=== PATIENT | female | born 1995 | race American Indian/Alaskan Native ===

== ENCOUNTER 2020-04-21 20:08 | Emergency (ER) | payer SELFPAY ==
[2020-04-21 20:16] VITALS: BP 147/92
--- NOTE | 2020-04-21 21:43 | Emergency Department Report ---
Chief Complaint: Dizziness Stated Complaint: DIZZINESS/HEADACHE Time Seen by Provider: 04/21/20 21:24 - HPI History of Present Illness: This is a 24-year-old female presents to the ED complaining of slight headache for the past 2 days. Patient states she was diagnosed with gestational hypertension and is currently not taking any medication. Patient states that she works a lot and felt dizzy a bit at work today because she was working in the heat she was nowhere else patient is a lot of heavy stuff. She denies fever/chills/chest pain/shortness of breath/dizziness - ROS Review of Systems: As noted in HPI - Exam Vital Signs: Vital Signs 04/21/20 20:14 Temperature 98.3 F Pulse Rate 93 H Respiratory 20 Rate Blood Pressure 147/92 O2 Sat by Pulse 97 Oximetry Physical Exam: GENERAL: Alert and oriented x3, no apparent distress, Normal Gait, atraumatic. HEAD: Head is normocephalic and a-traumatic. EYES: Extra ocular muscles are intact. Pupils are equal, round, and reactive to light and accommodation. NECK: Supple. Non edematous, No carotid bruits. No lymphadenopathy or thyromegaly. No C-spine tenderness LUNGS: Symetrical with respiration, No wheezing, no rales or crackles, CTAB. HEART: S1, S2 present, regular rate and rhythm without murmur, no rubs, no gallops. Non tender to palpation SKIN: Warm and dry, No lesions, No ulceration or induration present. MSE screening note: Focused history and physical exam performed. Due to findings the following was ordered: ED Medical Decision Making - Medical Decision Making This 24-year-old female who presents with history of high blood pressure. Blood pressure mildly elevated in the ED. Discussed with patient we will give referrals for primary care physician and to follow-up as soon as possible. Low dose blood pressure meds were given. Vital signs are normal stable patient is in no acute distress ED Disposition for MSE Clinical Impression: Uncontrolled hypertension Disposition: Z-07 MED SCREENING EXAM-LEFT Is pt being admited?: No Does the pt Need Aspirin: No Condition: Stable Instructions: Hypertension (ED) Additional Instructions: Make sure to follow up with the primary care physician as discussed. Take all your medications as you've been prescribed. If you have any worsening symptoms or develop new symptoms please return to ED immediately. Prescriptions: amLODIPine 10 mg PO DAILY #30 tab Referrals: [facility] [Provider Group] - 3-[address] [facility] [Outside] - 3-5 Days [facility] [Outside] - 3-5 Days [facility] [Outside] - 3-5 Days Forms: Work/School Release Form(ED) Time of Disposition: 21:44
== END 2020-04-21 21:44 | disposition left against medical advice (07) ==
LOC: ED 20:08
DX: I10 Essential (primary) hypertension (principal); Z53.21 Procedure and treatment not carried out due to patient leaving prior to being seen by health care provider

== ENCOUNTER 2020-06-11 19:21 | Emergency (ER) | payer SELFPAY ==
[2020-06-11 20:48] LABS: Bilirubin,Urine NEG (Negative); Blood,Urine NEG (Negative); Color,Urine Yellow (Yellow); Protein,Urine <15 mg/dL mg/dL (Negative)
[2020-06-11 20:50] LABS: Basophils # (Auto) 0.1 K/mm3 (0.0-0.1); Basophils % (Auto) 1.3 % (0.0-1.8); Eosinophils # (Auto) 0.2 K/mm3 (0.0-0.4); Eosinophils % (Auto) 2.6 % (0.0-4.3); Hematocrit 31.9 % (30.3-42.9); Hemoglobin 10.6 gm/dl (10.1-14.3); Lymphocytes # (Auto) 1.8 K/mm3 (1.2-5.4); Lymphocytes % (Auto) 28.1 % (13.4-35.0); Mean Corpuscular HGB Conc 33 % (30-34); Mean Corpuscular Volume 74 fl (79-97); Monocytes # (Auto) 0.4 K/mm3 (0.0-0.8); Monocytes % (Auto) 6.8 % (0.0-7.3); Platelet Count 458 K/mm3 (140-440); Red Blood Count 4.32 M/mm3 (3.65-5.03); Red Cell Distribution Width 17.8 % (13.2-15.2)
[2020-06-11 21:08] LABS: Albumin 3.9 g/dL (3.9-5); BUN/Creatinine Ratio 15; Blood Urea Nitrogen 12 mg/dL (7-17); Calcium 9.8 mg/dL (8.4-10.2); Hemolysis Index 4
[2020-06-11 21:10] LABS: Alanine Aminotransferase < 5 units/L (7-56)
--- NOTE | 2020-06-12 04:37 | Ultrasound Report ---
ULTRASOUND ABDOMEN, LIMITED (RIGHT UPPER QUADRANT) INDICATION: ruq pain. COMPARISON: None available. FINDINGS: Pancreas: Visualized portion shows no significant abnormality. Liver: Normal. Gallbladder: No gallstones identified. Possible mild sludge. Bile ducts: Normal. Common Bile Duct measures 2 mm. Free fluid: None. Additional Findings: None. IMPRESSION: Possible mild sludge. Signer Name: Héctor Jesus MD Signed: 06/12/2020 4:33 AM Workstation Name: [id number]
--- NOTE | 2020-06-12 04:59 | Emergency Department Report ---
ED Abdominal Pain HPI - General Chief Complaint: Abdominal Pain Stated Complaint: RIGHT SIDE STOMACH PAIN Time Seen by Provider: 06/11/20 21:28 Source: patient Mode of arrival: Ambulatory Limitations: No Limitations - History of Present Illness Initial Comments: 25-year-old obese -[place] female presents emerged department complaining of a one-week history of episodic abdominal pain associated with diarrhea and pain to the right upper quadrant. She was no vomiting, no hematuria no hematemesis no hematochezia. Ports no fever, chills, sweats. Symptoms worsen with food. MD Complaint: abdominal pain -: Gradual Location: RUQ Radiation: RUQ Migration to: RUQ Severity: mild Consistency: constant Improves With: nothing Worsens With: nothing Associated Symptoms: nausea. denies: constipation, dysuria, hematemesis, hematuria, anorexia, syncope - Related Data Previous Rx's Medication Instructions Recorded Last Taken Type amLODIPine 10 mg PO DAILY #30 tab 04/21/20 Unknown Rx Hyoscyamine Subl [Levsin Sl 0.125 0.125 mg SL Q6HR PRN #14 tab 06/12/20 Unknown Rx TAB] Ondansetron [Zofran ODT TAB] 8 mg PO Q12HR #14 tab.rapdis 06/12/20 Unknown Rx Allergies Allergy/AdvReac Type Severity Reaction Status Date / Time No Known Allergies Allergy Unverified 04/21/20 21:24 ED Review of Systems ROS: Stated complaint: RIGHT SIDE STOMACH PAIN Other details as noted in HPI Comment: All other systems reviewed and negative ED Past Medical Hx - Past Medical History Hx Hypertension: Yes (gestational) - Surgical History Past Surgical History?: Yes Additional Surgical History: eye - Social History Smoking Status: Former Smoker Substance Use Type: Marijuana - Medications Home Medications: Home Medications Medication Instructions Recorded Confirmed Last Taken Type amLODIPine 10 mg PO DAILY #30 tab 04/21/20 Unknown Rx Hyoscyamine Subl [Levsin Sl 0.125 0.125 mg SL Q6HR PRN #14 tab 06/12/20 Unknown Rx TAB] Ondansetron [Zofran ODT TAB] 8 mg PO Q12HR #14 tab.rapdis 06/12/20 Unknown Rx ED Physical Exam - General Limitations: No Limitations General appearance: alert, in no apparent distress - Head Head exam: Present: atraumatic, normocephalic - Eye Eye exam: Present: normal appearance, PERRL, EOMI - ENT ENT exam: Present: normal exam, normal orophraynx, mucous membranes moist, TM's normal bilaterally - Neck Neck exam: Present: normal inspection - Respiratory Respiratory exam: Present: normal lung sounds bilaterally. Absent: respiratory distress, wheezes, rales - Cardiovascular Cardiovascular Exam: Present: regular rate, normal rhythm. Absent: bradycardia, systolic murmur, diastolic murmur, rubs, gallop - GI/Abdominal GI/Abdominal exam: Present: soft, normal bowel sounds. Absent: guarding, rebound, organomegaly, mass, bruit, pulsatile mass - Extremities Exam Extremities exam: Present: normal inspection - Back Exam Back exam: Present: normal inspection - Neurological Exam Neurological exam: Present: alert, oriented X3 - Psychiatric Psychiatric exam: Present: normal affect, normal mood - Skin Skin exam: Present: warm, dry, intact, normal color. Absent: rash ED Course Vital Signs 06/11/20 19:48 Temperature 98.2 F Pulse Rate 95 H Respiratory 20 Rate Blood Pressure 166/110 O2 Sat by Pulse 99 Oximetry ED Medical Decision Making - Lab Data Result diagrams: 06/11/20 20:16 06/11/20 20:16 Lab Results 06/11/20 06/11/20 06/11/20 Range/Units 20:16 20:16 20:16 WBC 6.4 (4.5-11.0) K/mm3 RBC 4.32 (3.65-5.03) M/mm3 Hgb 10.6 (10.1-14.3) gm/dl Hct 31.9 (30.3-42.9) % MCV 74 L (79-97) fl MCH 25 L (28-32) pg MCHC 33 (30-34) % RDW 17.8 H (13.2-15.2) % Plt Count 458 H (140-440) K/mm3 Lymph % (Auto) 28.1 (13.4-35.0) % Lajas % (Auto) 6.8 (0.0-7.3) % Eos % (Auto) 2.6 (0.0-4.3) % Baso % (Auto) 1.3 (0.0-1.8) % Lymph # 1.8 (1.2-5.4) K/mm3 Lajas # 0.4 (0.0-0.8) K/mm3 Eos # 0.2 (0.0-0.4) K/mm3 Baso # 0.1 (0.0-0.1) K/mm3 Seg Neutrophils % 61.2 (40.0-70.0) % Seg Neutrophils # 3.9 (1.8-7.7) K/mm3 Sodium 138 (137-145) mmol/L Potassium 3.6 (3.6-5.0) mmol/L Chloride 102.1 (98-107) mmol/L Carbon Dioxide 22 (22-30) mmol/L Anion Gap 18 mmol/L BUN 12 (7-17) mg/dL Creatinine 0.8 (0.6-1.2) mg/dL Estimated GFR > 60 ml/min BUN/Creatinine Ratio 15 % Glucose 96 (65-100) mg/dL Calcium 9.8 (8.4-10.2) mg/dL Total Bilirubin 0.20 (0.1-1.2) mg/dL AST 17 (5-40) units/L ALT < 5 L (7-56) units/L Alkaline Phosphatase 89 (35-129) units/L Total Protein 7.9 (6.3-8.2) g/dL Albumin 3.9 (3.9-5) g/dL Albumin/Globulin Ratio 1.0 % Lipase (13-60) units/L HCG, Qual Negative (Negative) Urine Color (Yellow) Urine Turbidity (Clear) Urine pH (5.0-7.0) Ur Specific Powell (1.003-1.030) Urine Protein (Negative) mg/dL Urine Glucose (UA) (Negative) mg/dL Urine Ketones (Negative) mg/dL Urine Blood (Negative) Urine Nitrite (Negative) Urine Bilirubin (Negative) Urine Urobilinogen (<2.0) mg/dL Ur Leukocyte Esterase (Negative) Urine WBC (Auto) (0.0-6.0) /HPF Urine RBC (Auto) (0.0-6.0) /HPF U Epithel Cells (Auto) (0-13.0) /HPF 06/11/20 06/11/20 Range/Units 20:16 Unknown WBC (4.5-11.0) K/mm3 RBC (3.65-5.03) M/mm3 Hgb (10.1-14.3) gm/dl Hct (30.3-42.9) % MCV (79-97) fl MCH (28-32) pg MCHC (30-34) % RDW (13.2-15.2) % Plt Count (140-440) K/mm3 Lymph % (Auto) (13.4-35.0) % Lajas % (Auto) (0.0-7.3) % Eos % (Auto) (0.0-4.3) % Baso % (Auto) (0.0-1.8) % Lymph # (1.2-5.4) K/mm3 Lajas # (0.0-0.8) K/mm3 Eos # (0.0-0.4) K/mm3 Baso # (0.0-0.1) K/mm3 Seg Neutrophils % (40.0-70.0) % Seg Neutrophils # (1.8-7.7) K/mm3 Sodium (137-145) mmol/L Potassium (3.6-5.0) mmol/L Chloride (98-107) mmol/L Carbon Dioxide (22-30) mmol/L Anion Gap mmol/L BUN (7-17) mg/dL Creatinine (0.6-1.2) mg/dL Estimated GFR ml/min BUN/Creatinine Ratio % Glucose (65-100) mg/dL Calcium (8.4-10.2) mg/dL Total Bilirubin (0.1-1.2) mg/dL AST (5-40) units/L ALT (7-56) units/L Alkaline Phosphatase (35-129) units/L Total Protein (6.3-8.2) g/dL Albumin (3.9-5) g/dL Albumin/Globulin Ratio % Lipase 36 (13-60) units/L HCG, Qual (Negative) Urine Color Yellow (Yellow) Urine Turbidity Clear (Clear) Urine pH 6.0 (5.0-7.0) Ur Specific Powell 1.013 (1.003-1.030) Urine Protein <15 mg/dl (Negative) mg/dL Urine Glucose (UA) Neg (Negative) mg/dL Urine Ketones Neg (Negative) mg/dL Urine Blood Neg (Negative) Urine Nitrite Neg (Negative) Urine Bilirubin Neg (Negative) Urine Urobilinogen 2.0 (<2.0) mg/dL Ur Leukocyte Esterase Neg (Negative) Urine WBC (Auto) 4.0 (0.0-6.0) /HPF Urine RBC (Auto) 2.0 (0.0-6.0) /HPF U Epithel Cells (Auto) 6.0 (0-13.0) /HPF - Radiology Data Radiology results: report reviewed Referring Physician:ARELI TRINHPatient Name:DIANA HERNANDEZYPatient ID:[id number] of :[id number]:FemaleAccession:[id number] Date:[id number] Status:Finalized Findings [facility] [address] [place] [address] Ultrasound Report Signed Patient: DIANA HACKETT MR#: [id number] : 1995 Acct:[id number] Age/Sex: 24 / F ADM Date: 06/11/20 Loc: ED Attending Dr: Ordering Physician: EARL MATHIS Date of Service: 06/11/20 Procedure(s): US abdomen limited Accession Number(s): [id number] cc: EARL MATHIS ULTRASOUND ABDOMEN, LIMITED (RIGHT UPPER QUADRANT) INDICATION: ruq pain. COMPARISON: None available. FINDINGS: Pancreas: Visualized portion shows no significant abnormality. Liver: Normal. Gallbladder: No gallstones identified. Possible mild sludge. Bile ducts: Normal. Common Bile Duct measures 2 mm. Free fluid: None. Additional Findings: None. IMPRESSION: Possible mild sludge. Signer Name: Héctor Jesus MD Signed: 06/12/2020 4:33 AM Workstation Name: [id number] Transcribed By: ES Dictated By: Héctor Jesus MD Electronically Authenticated By: Héctor Jesus MD Signed Date/Time: 06/12/20432 DD/ 1 TD/TT: - Medical Decision Making this patient presents with abdominal pain of unclear etiology. Their evaluation has not identified a emergent etiology for the abdominal pain. Specifically, given the very benign exam, normal laboratory studies, and lack of significant risk factors, I have a very low suspicion for appendicitis, ischemic bowel, bowel perforation, or any other life threatening disease. I have discussed with the patient the level of uncertainty with undifferentiated abdominal pain and clearly explained the need to follow-up as noted on the discharge instructions, or return to the Emergency Department immediately if the pain worsens, develops fever, persistent and uncontrollable vomiting, or for any new symptoms or concerns. I discussed with the patient that this presentation today for abdominal pain could represent a significant risk for an acute abdominal process. Although the tests in the ED were essentially normal, there is still a possibility of a process such as appendicitis, diverticulitis, cholecystitis, ulcer, early bowel obstruction, mesenteric ischemia, kidney stone, or even kidney infection which could subsequently cause disability or . The patient understands that they must return within 24 hours for a recheck or see their physician within 24 hours for re-exam due to the possibility of significant surgical or medical process. Critical care attestation.: If time is entered above; I have spent that time in minutes in the direct care of this critically ill patient, excluding procedure time. ED Disposition Clinical Impression: Abdominal pain, Vomiting, Biliary pain Disposition: DC- TO HOME OR SELFCARE Is pt being admited?: No Does the pt Need Aspirin: No Condition: Stable Instructions: Abdominal Pain (ED) Additional Instructions: To be sure to follow-up with the gastrointestinal doctor to further evaluate your acalculus biliary pain Prescriptions: Hyoscyamine Subl [Levsin Sl 0.125 TAB] 0.125 mg SL Q6HR PRN #14 tab PRN Reason: ABDOMINAL PAIN Ondansetron [Zofran ODT TAB] 8 mg PO Q12HR #14 tab.lizzie Referrals: JOSIAS BEATTY MD [Staff Physician] - 3-5 Days [facility] [Provider Group] - 3-5 Days
[2020-06-12 06:50] VITALS: BP 170/103
== END 2020-06-12 05:40 | disposition home or self-care (01) ==
LOC: ED 19:21
DX: K80.42 Calculus of bile duct with acute cholecystitis without obstruction (principal); R11.10 Vomiting, unspecified; I10 Essential (primary) hypertension; F12.10 Cannabis abuse, uncomplicated; Z87.891 Personal history of nicotine dependence; Z79.899 Other long term (current) drug therapy
CPT/HCPCS: 36415; 76705; 80053; 81001; 83690; 84703; 85025

== ENCOUNTER 2021-01-11 17:39 | Emergency (ER) | payer SELFPAY ==
[2021-01-11 19:32] VITALS: BP 157/108
--- NOTE | 2021-01-11 20:26 | Emergency Department Report ---
- General Chief complaint: Eye Problems Stated complaint: SOMETHING BIT LT EYE LID Time Seen by Provider: 01/11/21 20:17 Source: patient Mode of arrival: Ambulatory Limitations: No Limitations - History of Present Illness Initial comments: Patient is a 25-year-old female who presents emergency room complaints of a possible bite to her left upper eyelid near her eyebrow that occurred 3 days ago. She did not see or feel anything bite her. She states that it is causing swelling of her eyelid. She denies any rash. She denies any involvement of the eye or any vision problems. She denies any drainage, fever, nausea, vomiting, diarrhea, other facial swelling, difficulty swallowing, difficulty breathing. She has a past medical history of hypertension. She states that she is out of her blood pressure medication. She states she takes amlodipine 5 mg daily. She does not have a primary care doctor yet. Last menstrual cycle 01/02/21. - Related Data Previous Rx's Medication Instructions Recorded Last Taken Type amLODIPine 10 mg PO DAILY #30 tab 04/21/20 Unknown Rx Hyoscyamine Subl [Levsin Sl 0.125 0.125 mg SL Q6HR PRN #14 tab 06/12/20 Unknown Rx TAB] Ondansetron [Zofran ODT TAB] 8 mg PO Q12HR #14 tab.rapdis 06/12/20 Unknown Rx Cetirizine HCl [Zyrtec 10mg tab] 10 mg PO DAILY #10 tablet 01/11/21 Unknown Rx Famotidine [Pepcid] 40 mg PO QHS #10 tablet 01/11/21 Unknown Rx Hydrocortisone 1% [Hydrocortisone 1 applicatio TP TID 7 Days #1 tube 01/11/21 Unknown Rx 1% CREAM] amLODIPine 5 mg PO DAILY #30 tab 01/11/21 Unknown Rx diphenhydrAMINE [Benadryl CAP] 25 mg PO Q8HR PRN #14 capsule 01/11/21 Unknown Rx Allergies Allergy/AdvReac Type Severity Reaction Status Date / Time No Known Allergies Allergy Unverified 04/21/20 21:24 Abscess Boil HPI - HPI Chief Complaint: Eye Problems Stated Complaint: SOMETHING BIT LT EYE LID Time Seen by Provider: 01/11/21 20:17 Home Medications: Previous Rx's Medication Instructions Recorded Last Taken Type amLODIPine 10 mg PO DAILY #30 tab 04/21/20 Unknown Rx Hyoscyamine Subl [Levsin Sl 0.125 0.125 mg SL Q6HR PRN #14 tab 06/12/20 Unknown Rx TAB] Ondansetron [Zofran ODT TAB] 8 mg PO Q12HR #14 tab.rapdis 06/12/20 Unknown Rx Cetirizine HCl [Zyrtec 10mg tab] 10 mg PO DAILY #10 tablet 01/11/21 Unknown Rx Famotidine [Pepcid] 40 mg PO QHS #10 tablet 01/11/21 Unknown Rx Hydrocortisone 1% [Hydrocortisone 1 applicatio TP TID 7 Days #1 tube 01/11/21 Unknown Rx 1% CREAM] amLODIPine 5 mg PO DAILY #30 tab 01/11/21 Unknown Rx diphenhydrAMINE [Benadryl CAP] 25 mg PO Q8HR PRN #14 capsule 01/11/21 Unknown Rx Allergies/Adverse Reactions: Allergies Allergy/AdvReac Type Severity Reaction Status Date / Time No Known Allergies Allergy Unverified 04/21/20 21:24 ED Review of Systems ROS: Stated complaint: SOMETHING BIT LT EYE LID Other details as noted in HPI Comment: All other systems reviewed and negative ED Past Medical Hx - Past Medical History Previous Medical History?: Yes Hx Hypertension: Yes (gestational) - Surgical History Past Surgical History?: Yes Additional Surgical History: eye - Social History Smoking Status: Former Smoker Substance Use Type: Marijuana - Medications Home Medications: Home Medications Medication Instructions Recorded Confirmed Last Taken Type amLODIPine 10 mg PO DAILY #30 tab 04/21/20 Unknown Rx Hyoscyamine Subl [Levsin Sl 0.125 0.125 mg SL Q6HR PRN #14 tab 06/12/20 Unknown Rx TAB] Ondansetron [Zofran ODT TAB] 8 mg PO Q12HR #14 tab.rapdis 06/12/20 Unknown Rx Cetirizine HCl [Zyrtec 10mg tab] 10 mg PO DAILY #10 tablet 01/11/21 Unknown Rx Famotidine [Pepcid] 40 mg PO QHS #10 tablet 01/11/21 Unknown Rx Hydrocortisone 1% [Hydrocortisone 1 applicatio TP TID 7 Days #1 tube 01/11/21 Unknown Rx 1% CREAM] amLODIPine 5 mg PO DAILY #30 tab 01/11/21 Unknown Rx diphenhydrAMINE [Benadryl CAP] 25 mg PO Q8HR PRN #14 capsule 01/11/21 Unknown Rx ED Physical Exam - General Limitations: No Limitations General appearance: alert, in no apparent distress - Head Head exam: Present: atraumatic, normocephalic - Eye Eye exam: Present: PERRL, EOMI, other (0.5 cm erythematous papule present to the left upper eyelid just inferior to the eyebrow, mild edema of the upper eyelid, no rashes, no facial edema, no drainage, no fluctuance, no necrosis, no increased warmth, no pain with EOMI) Pupils: Present: normal accommodation - ENT ENT exam: Present: mucous membranes moist - Respiratory Respiratory exam: Absent: respiratory distress, accessory muscle use - Neurological Exam Neurological exam: Present: alert, oriented X3 - Psychiatric Psychiatric exam: Present: normal affect, normal mood - Skin Skin exam: Present: warm, dry ED Course Vital Signs 01/11/21 19:30 Temperature 98.9 F Pulse Rate 99 H Respiratory 17 Rate Blood Pressure 157/108 O2 Sat by Pulse 100 Oximetry ED Medical Decision Making - Medical Decision Making Patient is a 25-year-old female who presents emergency room complaints of a possible bite to her left upper eyelid near her eyebrow that occurred 3 days ago. She did not see or feel anything bite her. She states that it is causing swelling of her eyelid. She denies any rash. She denies any involvement of the eye or any vision problems. She denies any drainage, fever, nausea, vomiting, diarrhea, other facial swelling, difficulty swallowing, difficulty breathing. She has a past medical history of hypertension. She states that she is out of her blood pressure medication. She states she takes amlodipine 5 mg daily. She does not have a primary care doctor yet. Last menstrual cycle 01/02/21. Vitals with mildly elevated blood pressure, secondary to patient being out of her medication, will refill her home medication and give her primary care follow-up. On exam: 0.5 cm erythematous papule present to the left upper eyelid just inferior to the eyebrow, mild edema of the upper eyelid, no rashes, no facial edema, no drainage, no fluctuance, no necrosis, no increased warmth, no pain with EOMI. examination appears most consistent with insect bite with mild localized reaction. No signs of cellulitis, abscess, preseptal or orbital cellulitis. No signs of significant allergic reaction. Advised patient Please use medication as prescribed. do not get ointment in the eye, only place over insect bite. Do not drive or operate machinery when taking Benadryl due to potential for drowsiness. Follow-up with your primary care doctor. Return to emergency room for new or worsening symptoms. Critical care attestation.: If time is entered above; I have spent that time in minutes in the direct care of this critically ill patient, excluding procedure time. ED Disposition Clinical Impression: Elevated blood pressure reading, Non compliance with medical treatment Insect bite Qualifiers: Encounter type: initial encounter Site of insect bite: head Site of insect bite of head: eyelid Laterality: left Qualified Code(s): S00.262A - Insect bite (nonvenomous) of left eyelid and periocular area, initial encounter Disposition: TO HOME OR SELFCARE Is pt being admited?: No Does the pt Need Aspirin: No Condition: Stable Instructions: Preventing Hypertension, Insect Bite, Adult, [id number] Additional Instructions: Please use medication as prescribed. do not get ointment in the eye, only place over insect bite. Do not drive or operate machinery when taking Benadryl due to potential for drowsiness. Follow-up with your primary care doctor. Return to emergency room for new or worsening symptoms. Prescriptions: Famotidine [Pepcid] 40 mg PO QHS #10 tablet amLODIPine 5 mg PO DAILY #30 tab diphenhydrAMINE [Benadryl CAP] 25 mg PO Q8HR PRN #14 capsule PRN Reason: itching/swelling Hydrocortisone 1% [Hydrocortisone 1% CREAM] 1 applicatio TP TID 7 Days #1 tube Cetirizine HCl [Zyrtec 10mg tab] 10 mg PO DAILY #10 tablet Referrals: JOSIAS BEATTY MD [Staff Physician] - 2-3 Days [facility] [Provider Group] - 2-3 Days BUCK CARRERA MD [Staff Physician] - 2-3 Days Time of Disposition: 20:24 Print Language: GREEK
== END 2021-01-11 20:45 | disposition home or self-care (01) ==
LOC: ED 17:39
DX: S00.262A Insect bite (nonvenomous) of left eyelid and periocular area, initial encounter (principal); R03.0 Elevated blood-pressure reading, without diagnosis of hypertension; I10 Essential (primary) hypertension; F12.90 Cannabis use, unspecified, uncomplicated; Z91.19 Patient's noncompliance with other medical treatment and regimen; Z79.899 Other long term (current) drug therapy; Z87.891 Personal history of nicotine dependence; W57.XXXA Bitten or stung by nonvenomous insect and other nonvenomous arthropods, initial encounter; Y93.89 Activity, other specified; Y92.89 Other specified places as the place of occurrence of the external cause; Y99.8 Other external cause status
CPT/HCPCS: 99281

== ENCOUNTER 2021-04-26 12:54 | Emergency (ER) | payer SELFPAY ==
[2021-04-26 13:05] VITALS: BP 152/104
--- NOTE | 2021-04-26 13:39 | Emergency Department Report ---
Chief Complaint: Headache Stated Complaint: STOMACH Time Seen by Provider: 04/26/21 13:34 - HPI History of Present Illness: Patient is a 25-year-old female presents emergency room complaints of URI symptoms that began 2 days ago. She has associated fever, generalized body aches, headache, nausea, mild dry cough, lightheadedness. She has not taken anything for fever today. She is afebrile here in the emergency room. She denies any vomiting, diarrhea, shortness of breath, chest pain, abdominal pain. She denies any known sick contacts. She states that she did travel to [place] over the weekend. Past medical history of hypertension and takes amlodipine. No allergies to medications. She has not received COVID-19 testing. She has not been vaccinated for COVID-19. Vitals are stable On exam: Non toxic appearing, no acute distress atraumatic, normocephalic normal appearance of the eyes, PERRL, EOMI, no periorbital edema or ecchymosis moist mucus membranes, normal oropharynx, normal TMs and canals regular heart rate and rhythm, no gallops, no rubs, no murmurs breath sounds are clear bilaterally, no w/r/r, no respiratory distress, no accessory muscle use, no stridor A&O x4, no focal neuro deficit skin is warm, dry, intact Patient is presenting with URI symptoms that began 2 days ago She has no fever, no tachycardia, no hypoxia, no hypotension No abnormality on physical examination as documented in chart Symptoms appear most consistent with viral URI Discussed supportive care and symptomatic treatment with patient Advised patient Please increase your water intake. May alternate Tylenol or ibuprofen as needed for headache or fever. May use Mucinex or TheraFlu [id number]. Follow-up with your primary care doctor for reexamination. Recommend for you to get COVID-19 testing as an outpatient and quarantine as necessary. please follow your work guidelines regarding viral illness. Return to emergency room for any new or symptoms. Discussed return precautions Medical screening examination performed and there is no threat to life or limb at this time - Exam Vital Signs: Vital Signs 04/26/21 13:04 Temperature 99.4 F Pulse Rate 95 H Respiratory 20 Rate Blood Pressure 152/104 O2 Sat by Pulse 95 Oximetry MSE screening note: Focused history and physical exam performed. Due to findings the following was ordered: ED Disposition for MSE Clinical Impression: Viral URI Disposition: Z- MED SCREENING EXAM-LEFT Is pt being admited?: No Does the pt Need Aspirin: No Condition: Stable Instructions: Viral Respiratory Infection Additional Instructions: Please increase your water intake. May alternate Tylenol or ibuprofen as needed for headache or fever. May use Mucinex or TheraFlu [id number]. Follow-up with your primary care doctor for reexamination. Recommend for you to get COVID-19 testing as an outpatient and quarantine as necessary. please follow your work guidelines regarding viral illness. Return to emergency room for any new or symptoms. Referrals: JOSIAS BEATTY MD [Staff Physician] - 3-5 Days [facility] [Provider Group] - 3-5 Days Forms: Work/School Release Form(ED) Time of Disposition: 13:38 Print Language: LUXEMBOURGER
== END 2021-04-26 14:33 | disposition left against medical advice (07) ==
LOC: ED 12:54
DX: J06.9 Acute upper respiratory infection, unspecified (principal); B97.89 Other viral agents as the cause of diseases classified elsewhere; Z53.21 Procedure and treatment not carried out due to patient leaving prior to being seen by health care provider

== ENCOUNTER 2021-08-03 16:21 | Emergency (ER) | payer SELFPAY ==
[2021-08-03] MEDS ORDERED: amLODIPine 5 MG TAB PO ONE (17:50)
--- NOTE | 2021-08-03 17:56 | Emergency Department Report ---
ED General Adult HPI - General Chief complaint: Headache Stated complaint: near syncope Time Seen by Provider: 08/03/21 17:38 Source: patient Mode of arrival: Ambulatory Limitations: No Limitations - History of Present Illness Initial comments: 25-year-old female patient with history of hypertension presents to the emergency department status post near syncopal episode while at work today. Patient states she has been experiencing recurrent episodes of headache, chest pain, and dizziness "for awhile." When asked what was different about today's episode, patient states, "she really felt like she might pass out." No prior syncopal episodes. Pt has been out of her blood pressure medication for one year. She was taking Amlodipine 5 mg before she moved to [place] last year. Pt is unsure if she is . 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 Denies fever, chills, vision changes, nausea, vomiting, syncope, seizure, paresthesias, numbness, weakness, palpitations, lower extremity pain/swelling. Denies all other complaints at this time. - Related Data Previous Rx's Medication Instructions Recorded Last Taken Type amLODIPine 10 mg PO DAILY #30 tab 04/21/20 Unknown Rx Hyoscyamine Subl [Levsin Sl 0.125 0.125 mg SL Q6HR PRN #14 tab 06/12/20 Unknown Rx TAB] Ondansetron [Zofran ODT TAB] 8 mg PO Q12HR #14 tab.rapdis 06/12/20 Unknown Rx Cetirizine HCl [Zyrtec 10mg tab] 10 mg PO DAILY #10 tablet 01/11/21 Unknown Rx Famotidine [Pepcid] 40 mg PO QHS #10 tablet 01/11/21 Unknown Rx Hydrocortisone 1% [Hydrocortisone 1 applicatio TP TID 7 Days #1 tube 01/11/21 Unknown Rx 1% CREAM] amLODIPine 5 mg PO DAILY #30 tab 01/11/21 Unknown Rx diphenhydrAMINE [Benadryl CAP] 25 mg PO Q8HR PRN #14 capsule 01/11/21 Unknown Rx Ferrous Sulfate [Ferrous Sulfate 324 mg PO DAILY 7 Days tablet.dr 08/03/21 Unknown Rx 324 MG] amLODIPine 5 mg PO DAILY 7 Days tab 08/03/21 Unknown Rx Allergies Allergy/AdvReac Type Severity Reaction Status Date / Time No Known Allergies Allergy Verified 04/26/21 12:59 ED Review of Systems ROS: Stated complaint: HEAD AND CHEST PAIN, LIGHT HEADED, NAUSEA Other details as noted in HPI Other: GENERAL: Negative for fever, chills, weight change, anorexia, fatigue. ENT: Negative for ear pain, difficulty hearing, sore throat, nasal congestion, epistaxis. CARDIOVASCULAR: Positive for chest pain. PULMONARY: Negative for cough, dyspnea, wheezing, orthopnea, cyanosis. GASTROINTESTINAL: Negative for abdominal pain, nausea, vomiting, diarrhea, constipation. MUSCULOSKELETAL: Negative for joint pain, joint swelling, myalgias, back pain, neck pain. NEUROLOGICAL: Positive for headache, dizziness, and near syncope. INTEGUMENTARY: Negative for erythema, rash, diaphoresis, laceration, ecchymosis. HEMATOLOGICAL: Negative for hemoptysis, hematemesis, hematochezia, hematuria. PSYCHIATRIC: Negative for hallucinations, suicidal ideation, homicidal ideation, anxiety, depression. ED Past Medical Hx - Past Medical History Hx Hypertension: Yes (gestational) - Surgical History Additional Surgical History: eye - Social History Smoking Status: Never Smoker Substance Use Type: Marijuana - Medications Home Medications: Home Medications Medication Instructions Recorded Confirmed Last Taken Type amLODIPine 10 mg PO DAILY #30 tab 04/21/20 Unknown Rx Hyoscyamine Subl [Levsin Sl 0.125 0.125 mg SL Q6HR PRN #14 tab 06/12/20 Unknown Rx TAB] Ondansetron [Zofran ODT TAB] 8 mg PO Q12HR #14 tab.rapdis 06/12/20 Unknown Rx Cetirizine HCl [Zyrtec 10mg tab] 10 mg PO DAILY #10 tablet 01/11/21 Unknown Rx Famotidine [Pepcid] 40 mg PO QHS #10 tablet 01/11/21 Unknown Rx Hydrocortisone 1% [Hydrocortisone 1 applicatio TP TID 7 Days #1 tube 01/11/21 Unknown Rx 1% CREAM] amLODIPine 5 mg PO DAILY #30 tab 01/11/21 Unknown Rx diphenhydrAMINE [Benadryl CAP] 25 mg PO Q8HR PRN #14 capsule 01/11/21 Unknown Rx Ferrous Sulfate [Ferrous Sulfate 324 mg PO DAILY 7 Days tablet.dr 08/03/21 Unknown Rx 324 MG] amLODIPine 5 mg PO DAILY 7 Days tab 08/03/21 Unknown Rx ED Physical Exam - General Limitations: No Limitations - Other Other exam information: General: Awake and alert. No acute distress. Head: Atraumatic, normocephalic. Eyes: EOMI. Pupils are equal and round, reactive to light, no nystagmus. Normal sclera and conjunctiva. ENT: Oral mucosa is moist. Normal pharyngeal exam. Neck: Supple. No lymphadenopathy. Pulmonary: No respiratory distress. Clear to auscultation bilaterally. Cardiac: Regular rate and rhythm. Pulses are palpable and equal bilaterally. No lower extremity cyanosis or edema. Skin: Warm and dry. No rashes. Abdomen: Soft, non-tender, non-protuberant. No guarding, rigidity, or rebound. Bowel sounds are normal. No organomegaly or masses noted. Back: Normal alignment. No CVA tenderness. Extremities: Symmetrical. Full range of motion intact. Neurological: Alert and oriented, appropriately interactive, no focal deficits. Strength and sensation intact throughout. Ambulatory without assistance. Psych: Cooperative. Appropriate mood and affect. Speech is evenly metered. Thoughts are logically construed. ED Course Vital Signs 08/03/21 08/03/21 17:28 19:53 Temperature 98.1 F Pulse Rate 81 Pulse Rate [ 84 Lying] Pulse Rate [ 88 Sitting] Pulse Rate [ 94 H Standing] Respiratory 18 Rate Blood Pressure 175/110 Blood Pressure 173/113 [Lying] Blood Pressure 169/117 [Sitting] Blood Pressure 167/110 [Standing] O2 Sat by Pulse 100 Oximetry ED Medical Decision Making - Lab Data Result diagrams: 08/03/21 17:57 08/03/21 17:57 - EKG Data 08/03/21 18:38 EKG shows normal sinus rhythm with a ventricular rate of 89 bpm. Normal axis. Normal TX interval. Normal QT interval. Poor R wave progression. No ST segment changes. Over read by attending emergency physician, who agrees with this interpretation. 08/03/21 18:40 - Medical Decision Making Differential diagnosis including but not limited to: acute coronary syndrome, cardiac arrhythmia, pericarditis, pericardial effusion/cardiac tamponade, , intracranial hemorrhage, dehydration, electrolyte abnormality, hypoglycemia, hyperglycemia, orthostatic hypotension Patient presents with acute atraumatic headache reaching maximum intensity within one hour of onset. After a thorough history and physical examination, it has been determined that the patient meets all of the following criteria: age 15-40, neurologically intact, full range of motion of the neck without pain/stif fness, no loss of consciousness, onset of headache was within the last 14 days and did not occur during physical exertion, and the pain did not peak instantly. The patient has no history of any of the following conditions: head trauma/fall in the last 7 days, prior aneurysm, prior subarachnoid hemorrhage, known intracranial lesion. It has been explained to the patient that based on the [place] Subarachnoid Hemorrhage Rule, imaging is not indicated at this time. It has been explained to the patient that the [place] rules are an adjunct decision- making tool and are not designed to replace clinical judgment. Patient has been given appropriate analgesia and will be reassessed prior to discharge home. On reevaluation, patient remains stable. Repeat neurological exam is nonfocal. EKG without acute injury pattern. Initial and repeat troponin within normal limits. test is negative. Chest x-ray is normal. No evidence of orthostasis. Labs are unremarkable except for anemia, which patient states she has been diagnosed with before. She is not currently on an iron supplement. No clinical indication for further diagnostic work-up on an emergent basis at this time. Patient will be discharged home with refill of blood pressure medication and iron supplement. It was explained to the patient that the emergency department is not responsible for managing either of these conditions long-term and she must establish care with a local primary care provider for definitive management. Patient expressed understanding and is agreeable to plan of care. Dietary modifications discussed. Strict return precautions provided. Repeat exam is unremarkable and benign. History, exam, diagnostic testing, and current condition do not suggest worrisome pathology to warrant further testing, continued ED treatment, admission, or surgical evaluation at this point. Given the low probability of a significant medical illness, it would be more likely to result in harm than benefit to perform further testing at this stage. Discussed findings, presumptive diagnosis, need for follow-up and specific signs/symptoms that should prompt immediate return to the emergency department. Instructions were explained in detail to the patient in addition to giving written discharge information. Patient expressed understanding and was given the opportunity to ask questions, all of which were satisfactorily answered prior to discharge home. Critical care attestation.: If time is entered above; I have spent that time in minutes in the direct care of this critically ill patient, excluding procedure time. ED Disposition Clinical Impression: History of hypertension Anemia Qualifiers: Anemia type: unspecified type Qualified Code(s): D64.9 - Anemia, unspecified Disposition: 01 HOME / SELF CARE / HOMELESS Is pt being admited?: No Does the pt Need Aspirin: No Condition: Stable Instructions: Hypertension, Adult, [id number], Preventing Iron Deficiency Anemia, Adult Additional Instructions: Take Amlodipine as previously prescribed. Reduce your dietary sodium intake. Exercise daily. Drink plenty of fluids. Take ferrous sulfate as directed. Increase your dietary intake of iron rich foods. You must establish care with a primary care provider this week for definitive management. See referral information below. Call tomorrow to schedule an appointment. Return to the emergency department immediately for new or worsening symptoms. Prescriptions: amLODIPine 5 mg PO DAILY 7 Days tab Ferrous Sulfate [Ferrous Sulfate 324 MG] 324 mg PO DAILY 7 Days tablet.dr Referrals: JOSIAS BEATTY MD [Staff Physician] - 3-5 Days [facility] [Provider Group] - 3-5 Days [facility] [Outside] - 3-5 Days [facility] [Outside] - 3-5 Days [facility] [Outside] - 3-5 Days Time of Disposition: 21:23 HEART Score - HEART Score History: Slightly suspicious EKG: Normal Age: < 45 Risk factors: 1-2 risk factors Troponin: Troponin T < 0.010 ng/mL (0.00-0.029) 08/03/21 20:35 Troponin: < normal limit HEART Score: 1 - Critical Actions Critical Actions: 0-3 pts:0.9-1.7%risk of adverse cardiac event.Candidate for discharge
[2021-08-03 18:08] LABS: Basophils # (Auto) 0.1 K/mm3 (0.0-0.1); Basophils % (Auto) 1.1 % (0.0-1.8); Eosinophils # (Auto) 0.3 K/mm3 (0.0-0.4); Eosinophils % (Auto) 4.8 % (0.0-4.3); Hematocrit 29.5 % (30.3-42.9); Hemoglobin 9.3 gm/dl (10.1-14.3); Lymphocytes # (Auto) 1.6 K/mm3 (1.2-5.4); Lymphocytes % (Auto) 23.2 % (13.4-35.0); Mean Corpuscular HGB Conc 32 % (30-34); Mean Corpuscular Volume 73 fl (79-97); Monocytes # (Auto) 0.5 K/mm3 (0.0-0.8); Monocytes % (Auto) 7.6 % (0.0-7.3); Platelet Count 505 K/mm3 (140-440); Red Blood Count 4.05 M/mm3 (3.65-5.03)
[2021-08-03 18:32] LABS: Albumin 4.1 g/dL (3.9-5); Blood Urea Nitrogen 10 mg/dL (7-17); Calcium 9.5 mg/dL (8.4-10.2); Hemolysis Index 20
[2021-08-03 18:39] LABS: Alanine Aminotransferase < 5 units/L (7-56); BUN/Creatinine Ratio 17
--- NOTE | 2021-08-03 19:02 | XRay Report ---
CHEST 2 VIEWS INDICATION / CLINICAL INFORMATION: near syncope. COMPARISON: None available. FINDINGS: SUPPORT DEVICES: None. HEART / MEDIASTINUM: No significant abnormality. LUNGS / PLEURA: No significant pulmonary or pleural abnormality. No pneumothorax. ADDITIONAL FINDINGS: No significant additional findings. IMPRESSION: 1. No acute findings. Signer Name: Lorie Bass MD Signed: 08/03/2021 6:58 PM Workstation Name: [id number]
[2021-08-03 21:32] VITALS: BP 134/83
--- NOTE | 2021-08-04 11:55 | Electrocardiograph Report ---
[facility] Test Date: 2021-08-03 Test Time: 18:13:55 Pat Name: DIANA HACKETT Department: Room: Gender: F Mesmerist: CECILLE : 1995 Requested By: ANNETTE LONGORIA Order Number: [id number] Reading MD: Danny Torres Measurements Intervals [place] Rate: 89 P: 58 WV: 161 QRS: 20 QRSD: 101 T: 38 QT: 363 QTc: 442 Interpretive Statements Sinus rhythm non specfici st-t No previous ECG available for comparison Electronically Signed On 08-04-2021 11:54:46 EDT by Danny Torres
== END 2021-08-03 21:31 | disposition home or self-care (01) ==
LOC: ED 16:21
DX: D64.9 Anemia, unspecified (principal); I10 Essential (primary) hypertension; R55 Syncope and collapse; Z79.899 Other long term (current) drug therapy
CPT/HCPCS: 36415; 71046; 80053; 83735; 84484; 84703; 85025; 93005; 99284

== ENCOUNTER 2022-02-07 14:19 | Emergency (ER) | payer SELFPAY ==
[2022-02-07] MEDS ORDERED: SODIUM CHLORIDE 0.9% 1000 ML 1,000 ML IV ONE (21:50)
[2022-02-07 22:13] LABS: Basophils % (Auto) 0.5 % (0.0-1.8); Eosinophils # (Auto) 0.1 K/mm3 (0.0-0.4); Eosinophils % (Auto) 1.6 % (0.0-4.3); Hematocrit 29.9 % (30.3-42.9); Hemoglobin 9.4 gm/dl (10.1-14.3); Lymphocytes # (Auto) 1.5 K/mm3 (1.2-5.4); Lymphocytes % (Auto) 22.2 % (13.4-35.0); Mean Corpuscular HGB Conc 31 % (30-34); Monocytes # (Auto) 0.5 K/mm3 (0.0-0.8); Platelet Count 480 K/mm3 (140-440); Red Blood Count 4.38 M/mm3 (3.65-5.03); Red Cell Distribution Width 18.8 % (13.2-15.2)
[2022-02-07 22:31] LABS: Mean Corpuscular Volume 68 fl (79-97)
[2022-02-07 22:32] LABS: Albumin 4.4 g/dL (3.9-5); Blood Urea Nitrogen 11 mg/dL (7-17); Calcium 9.7 mg/dL (8.4-10.2); Hemolysis Index 0
[2022-02-07 22:34] LABS: Alanine Aminotransferase < 5 units/L (7-56); BUN/Creatinine Ratio 16
[2022-02-07 23:43] VITALS: BP 169/90
[2022-02-07 23:45] LABS: Bacteria,Urine 1+ /HPF (Negative); Bilirubin,Urine NEG (Negative); Blood,Urine NEG (Negative); Color,Urine Yellow (Yellow); Mucus,Urine FEW /HPF; Protein,Urine <15 mg/dL mg/dL (Negative); Urobilinogen,Urine < 2.0 mg/dL (<2.0)
[2022-02-07 23:52] LABS: HCG Qualitative,Urine Negative (Negative)
--- NOTE | 2022-02-08 00:06 | Emergency Department Report ---
- General Chief complaint: Weakness Stated complaint: CP/SOB/DIZZINESS FROM STANDING Time Seen by Provider: 02/07/22 21:47 Source: patient Mode of arrival: Ambulatory Limitations: No Limitations - History of Present Illness Initial comments: pt reports feeling weak, dizzy since yesterday. pt states she had a blow out in her car yesterday, started feeling sob, weak, went to urgent care yesterday, still not feeling any better MD Complaint: generalized weakness -: Gradual, days(s) Location: generalized Consistency: intermittent Improves with: none Worsens with: none Associated Symptoms: denies: denies other symptoms, chest pain, dark stools, diaphoresis - Related Data Previous Rx's Medication Instructions Recorded Last Taken Type amLODIPine 10 mg PO DAILY #30 tab 04/21/20 Unknown Rx Hyoscyamine Subl [Levsin Sl 0.125 0.125 mg SL Q6HR PRN #14 tab 06/12/20 Unknown Rx TAB] Ondansetron [Zofran ODT TAB] 8 mg PO Q12HR #14 tab.rapdis 06/12/20 Unknown Rx Cetirizine HCl [Zyrtec 10mg tab] 10 mg PO DAILY #10 tablet 01/11/21 Unknown Rx Famotidine [Pepcid] 40 mg PO QHS #10 tablet 01/11/21 Unknown Rx Hydrocortisone 1% [Hydrocortisone 1 applicatio TP TID 7 Days #1 tube 01/11/21 Unknown Rx 1% CREAM] amLODIPine 5 mg PO DAILY #30 tab 01/11/21 Unknown Rx diphenhydrAMINE [Benadryl CAP] 25 mg PO Q8HR PRN #14 capsule 01/11/21 Unknown Rx Ferrous Sulfate [Ferrous Sulfate 324 mg PO DAILY 7 Days tablet.dr 08/03/21 Unknown Rx 324 MG] amLODIPine 5 mg PO DAILY 7 Days tab 08/03/21 Unknown Rx Ferrous Sulfate [Ferrous Sulfate 324 mg PO DAILY #30 02/08/22 Unknown Rx 324 MG] cephALEXin [Keflex] 500 mg PO Q12HR #14 cap 02/08/22 Unknown Rx Allergies Allergy/AdvReac Type Severity Reaction Status Date / Time No Known Allergies Allergy Verified 02/07/22 15:52 ED Review of Systems ROS: Stated complaint: CP/SOB/DIZZINESS FROM STANDING Other details as noted in HPI Constitutional: denies: chills, fever Eyes: denies: eye pain, eye discharge, vision change ENT: denies: ear pain, throat pain Respiratory: denies: cough, shortness of breath, wheezing Cardiovascular: denies: chest pain, palpitations Endocrine: no symptoms reported Gastrointestinal: denies: abdominal pain, nausea, diarrhea Genitourinary: denies: urgency, dysuria, discharge Musculoskeletal: denies: back pain, joint swelling, arthralgia Skin: denies: rash, lesions Neurological: denies: headache, weakness, paresthesias Psychiatric: denies: anxiety, depression Hematological/Lymphatic: denies: easy bleeding, easy bruising ED Past Medical Hx - Past Medical History Hx Hypertension: Yes (gestational) - Surgical History Past Surgical History?: No Additional Surgical History: eye - Social History Smoking Status: Never Smoker Substance Use Type: Marijuana - Medications Home Medications: Home Medications Medication Instructions Recorded Confirmed Last Taken Type amLODIPine 10 mg PO DAILY #30 tab 04/21/20 Unknown Rx Hyoscyamine Subl [Levsin Sl 0.125 0.125 mg SL Q6HR PRN #14 tab 06/12/20 Unknown Rx TAB] Ondansetron [Zofran ODT TAB] 8 mg PO Q12HR #14 tab.rapdis 06/12/20 Unknown Rx Cetirizine HCl [Zyrtec 10mg tab] 10 mg PO DAILY #10 tablet 01/11/21 Unknown Rx Famotidine [Pepcid] 40 mg PO QHS #10 tablet 01/11/21 Unknown Rx Hydrocortisone 1% [Hydrocortisone 1 applicatio TP TID 7 Days #1 tube 01/11/21 Unknown Rx 1% CREAM] amLODIPine 5 mg PO DAILY #30 tab 01/11/21 Unknown Rx diphenhydrAMINE [Benadryl CAP] 25 mg PO Q8HR PRN #14 capsule 01/11/21 Unknown Rx Ferrous Sulfate [Ferrous Sulfate 324 mg PO DAILY 7 Days tablet.dr 08/03/21 Unknown Rx 324 MG] amLODIPine 5 mg PO DAILY 7 Days tab 08/03/21 Unknown Rx Ferrous Sulfate [Ferrous Sulfate 324 mg PO DAILY #30 02/08/22 Unknown Rx 324 MG] cephALEXin [Keflex] 500 mg PO Q12HR #14 cap 02/08/22 Unknown Rx ED Physical Exam - General Limitations: No Limitations General appearance: alert, in no apparent distress - Head Head exam: Present: atraumatic, normocephalic - Eye Eye exam: Present: normal appearance - ENT ENT exam: Present: mucous membranes moist - Neck Neck exam: Present: normal inspection - Respiratory Respiratory exam: Present: normal lung sounds bilaterally. Absent: respiratory distress - Cardiovascular Cardiovascular Exam: Present: regular rate, normal rhythm. Absent: systolic murmur, diastolic murmur, rubs, gallop - GI/Abdominal GI/Abdominal exam: Present: soft, normal bowel sounds - Extremities Exam Extremities exam: Present: normal inspection - Back Exam Back exam: Present: normal inspection - Neurological Exam Neurological exam: Present: alert, oriented X3 - Psychiatric Psychiatric exam: Present: normal affect, normal mood - Skin Skin exam: Present: warm, dry, intact, normal color. Absent: rash ED Course Vital Signs 02/07/22 02/07/22 02/07/22 15:49 20:03 23:12 Temperature 98.7 F Pulse Rate 85 Respiratory 16 14 Rate Blood Pressure 143/81 152/100 Blood Pressure 151/97 [Left] O2 Sat by Pulse 100 Oximetry 02/07/22 02/07/22 02/07/22 23:16 23:30 23:46 Temperature Pulse Rate 87 85 90 Respiratory 12 13 14 Rate Blood Pressure 152/100 169/90 169/90 Blood Pressure [Left] O2 Sat by Pulse Oximetry ED Medical Decision Making - Lab Data Result diagrams: 02/07/22 21:54 02/07/22 21:54 - EKG Data -: EKG Interpreted by La EKG shows normal: sinus rhythm Rate: normal - EKG Data Interpretation: no acute changes - Radiology Data Radiology results: report reviewed, image reviewed - Medical Decision Making worok up shwoed anemia, History of the same, uti noted vss no distress, cristi restart iron and abx Critical care attestation.: If time is entered above; I have spent that time in minutes in the direct care of this critically ill patient, excluding procedure time. ED Disposition Clinical Impression: Weakness, Anemia, UTI (urinary tract infection) Disposition: HOME / SELF CARE / HOMELESS Is pt being admited?: No Does the pt Need Aspirin: No Condition: Stable Instructions: Urinary Tract Infection, Adult, [id number], Weakness, Hematocrit Test Referrals: JOSIAS BEATTY MD [Primary Care Provider] - 3-5 Days
--- NOTE | 2022-02-08 00:15 | XRay Report ---
CHEST 1 VIEW 02/07/2022 11:54 PM INDICATION / CLINICAL INFORMATION: Weakness. COMPARISON: 2 views of the chest from 08/03/2021. FINDINGS: SUPPORT DEVICES: None. HEART / MEDIASTINUM: No significant abnormality. LUNGS / PLEURA: No significant pulmonary abnormality. No significant pleural effusion. No pneumothora x. ADDITIONAL FINDINGS: No significant additional findings. IMPRESSION: 1. No acute abnormality of the chest. Signer Name: Paul Edwards MD Signed: 02/08/2022 12:11 AM Workstation Name: [id number]
--- NOTE | 2022-02-08 18:02 | Electrocardiograph Report ---
[facility] Test Date: 2022-02-07 Test Time: 19:31:29 Pat Name: DIANA HACKETT Department: Room: Gender: F Balance Recesser: KEZIA : 1995 Requested By: THOMAS FAGAN Order Number: [id number] Reading MD: Zeinab Han Measurements Intervals [place] Rate: 81 P: 68 [place]: 149 QRS: 31 QRSD: 99 T: 42 QT: 384 QTc: 445 Interpretive Statements Sinus rhythm Compared to ECG 08/03/2021 18:13:55 No significant changes Electronically Signed On 02-08-2022 18:02:00 EDT by Zeinab Han
== END 2022-02-08 | disposition home or self-care (01) ==
LOC: ED 14:19
DX: D64.9 Anemia, unspecified (principal); N39.0 Urinary tract infection, site not specified; I10 Essential (primary) hypertension; F12.90 Cannabis use, unspecified, uncomplicated; Z79.899 Other long term (current) drug therapy
CPT/HCPCS: 36415; 71045; 80053; 81001; 81025; 82550; 84484; 85025; 87086; 93005; 96360; 99284